=== PATIENT | male | born 1965 | race Caucasian/White ===

== ENCOUNTER 2019-05-10 09:37 | Day surgery (SDC) | payer OTHER ==
[2019-05-07 09:15] VITALS: BMI 30.7
[~2019-05-10 09:37] MED LIST: LACTATED RINGERS 1,000 ML IV SCH; LIDOCAINE 1% 20 ML VIAL (10MG/ML) FOR IV START INTRADERMA PRN
[2019-05-10 10:16] VITALS: RESP 16; TEMP 97
[2019-05-10] MEDS ORDERED: PROPOFOL 10 MG/ML 20 ML VIAL IV ONE (11:10)
--- NOTE | 2019-05-10 11:13 | P.GSHP ---
History of Present Illness H&P Date: 05/10/19 Chief Complaint: Screening colonoscopy Is a 53-year-old male who presents today for screening colonoscopy. Patient denies any significant GI complaints. Past Medical History Past Medical History: Sleep Apnea/CPAP/BIPAP History of Any Multi-Drug Resistant Organisms: None Reported Additional Past Surgical History / Comment(s): lt ankle with screws and plates Past Anesthesia/Blood Transfusion Reactions: No Reported Reaction Additional Past Anesthesia/Blood Transfusion Reaction / Comment(s): adopted Smoking Status: Current every day smoker - Past Family History Mother Family Medical History: Unable to Obtain Additional Family Medical History / Comment(s): pt adopted Medications and Allergies Home Medications Medication Instructions Recorded Confirmed Type Aspirin [Adult Low Dose Aspirin EC] 81 mg PO DAILY 05/07/19 05/07/19 History Multivitamins, Thera [Multivitamin 1 tab PO DAILY 05/07/19 05/07/19 History (formulary)] No Known Home Medications 05/07/19 05/07/19 History Allergies Allergy/AdvReac Type Severity Reaction Status Date / Time Sulfa (Sulfonamide Allergy Rash/Hives Verified 05/10/19 09:56 Antibiotics) Surgical - Exam Vital Signs Temp Pulse Resp BP Pulse Ox 97.0 F L 78 16 132/84 96 05/10/19 10:10 05/10/19 10:10 05/10/19 10:10 05/10/19 10:10 05/10/19 10:10 - General well developed, well nourished, no distress - Eyes PERRL - ENT normal pinna - Neck no masses - Respiratory normal expansion - Cardiovascular Rhythm: regular - Abdomen Abdomen: soft, non tender Assessment and Plan Assessment: We'll perform screening colonoscopy.
--- NOTE | 2019-05-10 11:27 | P.OP ---
Date of Procedure: 05/10/19 Preoperative Diagnosis: Screening colonoscopy Postoperative Diagnosis: Rectal polyp Diverticulosis Procedure(s) Performed: Colonoscopy Anesthesia: MAC Surgeon: Kayode Vega Pathology: none sent (Rectal polyp) Disposition: PACU Description of Procedure: The patient's placed on the endoscopy table in the lateral position. He r eceived IV sedation. Digital rectal exam was performed. There were no abnormalities. The prostate was symmetric without nodules. The flexible colonoscope was then placed patient anus and passed throughout the entire colon. The ileocecal valve was visualized. The cecum, ascending and transverse colon appeared normal. In the descending; there is moderate diverticular changes. There is no evidence of diverticulitis. The scope was then brought back the rectum this appeared normal. Scope withdrawn for patient.
[2019-05-10 11:38] VITALS: BP 111/75; PULSE 72
== END 2019-05-10 11:56 | disposition home or self-care (01) ==
LOC: ORWHC2ENDO 09:37
PROVIDERS: ATTEND Surgery
DX: Z12.11 Encounter for screening for malignant neoplasm of colon (principal); K62.1 Rectal polyp; K57.30 Diverticulosis of large intestine without perforation or abscess without bleeding; G47.33 Obstructive sleep apnea (adult) (pediatric); F17.210 Nicotine dependence, cigarettes, uncomplicated; Z79.82 Long term (current) use of aspirin; E66.9 Obesity, unspecified; Z88.2 Allergy status to sulfonamides; Z98.890 Other specified postprocedural states; Z68.30 Body mass index [BMI] 30.0-30.9, adult
CPT/HCPCS: 88305; 45380; J2704

== ENCOUNTER 2023-01-30 08:32 | Day surgery (SDC) | payer OTHER ==
[~2023-01-30 08:32] MED LIST changes: +LIDOCAINE 1% (10MG/ML) FOR IV START INTRADERMA PRN; -LIDOCAINE 1% 20 ML VIAL (10MG/ML) FOR IV START INTRADERMA PRN
[2023-01-30 10:17] VITALS: TEMP 98.3
[2023-01-30] MEDS ORDERED: PROPOFOL 10 MG/ML 20 ML VIAL IV ONE (10:50)
[2023-01-30] MEDS ORDERED: MIDAZOLAM 2 MG/2 ML VIAL ONE (10:50)
[2023-01-30] MEDS ORDERED: LIDOCAINE 2% INJ 20 MG/ML (2 ML VIAL) ONE (10:50)
--- NOTE | 2023-01-30 10:59 | P.GSHP ---
History of Present Illness H&P Date: 01/30/23 Chief Complaint: history of colon polyps this a 57-year-old male presents today for colonoscopy. Patient appears history of colon polyps. His last colonoscopy was 4 years ago. Past Medical History Past Medical History: COPD, GERD/Reflux, Sleep Apnea/CPAP/BIPAP Additional Past Medical History / Comment(s): past hx colon polyps, uses CPAP, hx. of vertigo History of Any Multi-Drug Resistant Organisms: None Reported Past Surgical History: Orthopedic Surgery Additional Past Surgical History / Comment(s): ORIF left ankle, colonoscopy Past Anesthesia/Blood Transfusion Reactions: No Reported Reaction Additional Past Anesthesia/Blood Transfusion Reaction / Comment(s): adopted Smoking Status: Former smoker - Past Family History Mother Family Medical History: Unable to Obtain Additional Family Medical History / Comment(s): pt adopted Medications and Allergies Home Medications Medication Instructions Recorded Confirmed Type Aspirin [Adult Low Dose Aspirin EC] 81 mg PO DAILY 05/07/19 01/30/23 History Multivitamins, Thera [Multivitamin 1 tab PO DAILY 05/07/19 01/30/23 History (formulary)] Atorvastatin [Lipitor] 10 mg PO HS 01/28/23 01/30/23 History [place]-3/Dha/Epa/Fish Oil [Fish Oil 1 each PO DAILY 01/28/23 01/30/23 History 1,000 mg Softgel] Omeprazole [PriLOSEC] 40 mg PO DAILY 01/28/23 01/30/23 History buPROPion XL [Wellbutrin XL] 150 mg PO DAILY 01/28/23 01/30/23 History tadalafiL [Cialis] 20 mg PO DIRECTED PRN 01/28/23 01/30/23 History Allergies Allergy/AdvReac Type Severity Reaction Status Date / Time Sulfa (Sulfonamide Allergy Rash/Hives Verified 01/30/23 09:52 Antibiotics) Surgical - Exam Vital Signs Temp Pulse Resp BP Pulse Ox 98.3 F 72 16 138/76 95 01/30/23 09:50 01/30/23 09:50 01/30/23 09:50 01/30/23 09:50 01/30/23 09:50 - General well developed, well nourished, no distress - Eyes PERRL - ENT normal pinna - Neck no masses - Respiratory normal expansion - Cardiovascular Rhythm: regular - Abdomen Abdomen: soft, non tender Assessment and Plan Assessment: history of colon polyps. We'll perform colonoscopy.
--- NOTE | 2023-01-30 11:10 | P.OP ---
Date of Procedure: 01/30/23 Preoperative Diagnosis: history of colon polyps Postoperative Diagnosis: internal and external hemorrhoids Procedure(s) Performed: colonoscopy Anesthesia: MAC Surgeon: Kayode Vega Pathology: none sent Condition: stable Disposition: PACU Description of Procedure: the patient's placed on the endoscopy table in the lateral position. He received IV sedation. Digital rectal exam was performed. There were some small external and moderate internal hemorrhoids noted. The flexible colonoscope was then placed patient anus and passed throughout the entire colon. The ileocecal valve was visualized. Cecum, ascending and transverse colon appeared normal. The descending and sigmoid colon appeared normal. There were no polyps seen in the colon.the scope was brought back the rectum and this appeared normal. The scope was then withdrawn from the patient.
[2023-01-30 11:28] VITALS: RESP 20
[2023-01-30] MEDS ORDERED: LACTATED RINGERS 1,000 ML IV ONE (11:43)
[2023-01-30 11:46] VITALS: BP 108/72; PULSE 71
== END 2023-01-30 12:01 ==
LOC: ORWHC2ENDO 08:32
PROVIDERS: ATTEND Surgery
DX: Z12.11 Encounter for screening for malignant neoplasm of colon (principal); K64.8 Other hemorrhoids; K64.4 Residual hemorrhoidal skin tags; J44.9 Chronic obstructive pulmonary disease, unspecified; K21.9 Gastro-esophageal reflux disease without esophagitis; G47.30 Sleep apnea, unspecified; Z98.890 Other specified postprocedural states; Z87.891 Personal history of nicotine dependence; Z86.010 Personal history of colon polyps; Z79.82 Long term (current) use of aspirin; Z79.899 Other long term (current) drug therapy
CPT/HCPCS: 45378; J2250; J2704; J2001

== ENCOUNTER → 2023-07-29 | Outpatient (CLI) | payer OTHER ==
--- NOTE | 2023-07-29 08:03 | CTL ---
EXAMINATION TYPE: CT Low Dose Lung DATE OF EXAM: 07/29/2023 7:11 AM CLINICAL INDICATION:Male, 57 years old with history of Z87.891 personal hx tobacco use; history of sm oking , history of tobacco use. COMPARISON: None. Baseline study. TECHNIQUE: CT scan of the chest obtained without contrast from approximately the lung apices through the upper abdomen. Axial, coronal and sagittal reformatted images were obtained. Low dose technique w as utilized for nodule screening purposes. CT DLP: 160.7 mGycm, Automated exposure control for dose reduction was used. CT Contrast: Contrast used: None Oral contrast used: None FINDINGS: Lack of intravenous contrast and low dose technique limits the evaluation of the vascular and soft ti ssue structures. LUNGS: No evidence of pulmonary fibrosis. No evidence of focal consolidation, pneumothorax or pleural effusion. Mildly prominent slightly lobulated extrapleural fat about both lungs and insinuating into the left oblique fissure. There are emphysematous changes bilaterally, generally mild upper lobe pre dominant with a prominent bleb noted in the left paramediastinal location at the level of the pulmona ry trunk measuring 4.2 x 2.9 cm. Nodules: RUL: None RML: None RLL: None JONATAN: None LLL: None AIRWAY: Patent and unremarkable. LOWER NECK: Left thyroid lobe appears somewhat asymmetrically larger than the right. HEART AND VASCULATURE: Heart is normal in size. Prominent pericardial fat noted, left greater than ri ght. No significant coronary artery calcifications. Mild atherosclerotic calcifications of the aorta . There is fusiform dilatation of the ascending aorta during up to 4.3 cm. There is tapering along t he arch and the proximal descending aorta measures 3.1 cm. Pulmonary trunk is borderline mildly enlar ged, measuring 2.9 cm. MEDIASTINUM: No gross evidence of adenopathy. SOFT TISSUES/LYMPH NODES: Unremarkable soft tissues. No axillary adenopathy. UPPER ABDOMEN: Partial eventration of the anterior aspect of the diaphragm with slight extension of t he intraperitoneal fat and liver up into the chest anteriorly. MUSCULOSKELETAL: Mild to moderate disc degeneration changes are present throughout the thoracolumbar spine. No acute findings. Prominent degenerative hypertrophic change at the junction of the body and manubrium of the sternum. IMPRESSION: 1. No clinically significant pulmonary nodules. 2. Mild emphysematous changes, with a prominent surface bleb along the left mediastinal margin. 3. 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 LUNG RAD AND CT CHEST RECOMMENDATION: Lung-Rad 1 Negative: Continue annual screening with LDCT in 12 months. C Modifier (Personal history of lung cancer?): No. S Modifier (Other clinically significant or potentially significant findings?): Yes (see below). Other significant or potentially significant abnormalities: Fusiform aneurysm of the ascending thora cic aorta measuring up to 4.3 cm Recommend smoking cessation (if current smoker), or continuation of smoking cessation (if prior smoke r). Annual screening for lung cancer with low-dose computed tomography is recommended in adults ages 55 to 77 years who have a 30 pack-year smoking history and currently smoke or have quit within the pa st 15 years. Screening should be discontinued once a person has not smoked for 15 years or develops a health problem that substantially limits life expectancy or the ability or willingness to have curat tino lung surgery. Lung rads 2021 [email or web address]
== END | disposition home or self-care (01) ==
LOC: RADCTMAIN 06:44
PROVIDERS: ATTEND Family Medicine
DX: Z12.2 Encounter for screening for malignant neoplasm of respiratory organs (principal); J43.9 Emphysema, unspecified; I71.21 Aneurysm of the ascending aorta, without rupture; Z87.891 Personal history of nicotine dependence
CPT/HCPCS: 71271